=== PATIENT | female | born 1950 | race Caucasian/White ===

== ENCOUNTER 2016-08-19 16:35 | Observation (INO) | payer OTHER ==
[~2016-08-19] VITALS: Ht 160 cm; Wt 65.0 kg
[2016-08-19 16:56] LABS: HEMATOCRIT 36.4 % (36.0-46.0); MCH 31.9 PG (29.0-34.0); MCHC 33.5 G/DL (30.0-36.0); MEAN PLAT.VOLUME 9.8 uM^3 (9.5-12.4); PLATELET COUNT 310 K/uL (156-360); RBC DIS.WIDTH-CV 13.9 % (11.8-14.6); RBC DIS.WIDTH-SD 48.2 % (39-53); RED BLOOD COUNT 3.83 M/uL (3.80-5.20); WHITE BLOOD COUNT 8.9 K/uL (4.1-10.2)
[2016-08-19 17:04] LABS: CHLORIDE 107 mEq/L (99-109); POTASSIUM 3.6 mEq/L (3.7-5.4); SODIUM 140 mEq/L (136-147)
[2016-08-19 17:06] LABS: GLUCOSE 159 mg/dL (70-99)
[2016-08-19 17:07] LABS: ANION GAP 13 MEQ/L (2-14)
[2016-08-19 17:08] LABS: D-DIMER ELISA 0.33 mg/L FEU (< 0.57)
[2016-08-19 17:10] LABS: GFR ESTIMATE (CALCULATED) 40 mL/min/
[2016-08-19 17:11] LABS: UREA NITROGEN (BUN) 16 mg/dL (9-23)
[2016-08-19 17:18] LABS: TROP-I INTERPRETATION NEGATIVE; TROPONIN-I 0.03 ng/mL (0.0-0.30)
[2016-08-19] MEDS ORDERED: RANITIDINE HCL150 MG PO (18:17)
[2016-08-19] MEDS ORDERED: METHOTREXATE2.5 MG PO (18:17)
[2016-08-19] MEDS ORDERED: VITAMIN D31000 UNIT PO (18:18)
[2016-08-19] MEDS ORDERED: CALCIUM 500 +1 EAC2 PO (18:18)
[2016-08-19] MEDS ORDERED: FOLIC ACID1 MG PO (18:18)
[2016-08-19] MEDS ORDERED: SPIRIVA1 INHALATI IH (18:18)
[2016-08-19] MEDS ORDERED: PRAVASTATIN SOD10 MG PO (18:18)
[2016-08-19] MEDS ORDERED: PROAIR HFA8.5 GM IH (18:18)
[2016-08-19] MEDS ORDERED: LO-DOSE ASPIRIN81 M2 PO (18:19)
[2016-08-19] MEDS ORDERED: CLARITIN,ALAVAR10 MG PO (18:19)
[2016-08-19] MEDS ORDERED: ALEVE220 MG PO (18:19)
[2016-08-19] MEDS ORDERED: CEFTIN500 MG PO (18:19)
[2016-08-19 21:52] VITALS: BP 133/80
[2016-08-19 23:52] LABS: TROP-I INTERPRETATION NEGATIVE; TROPONIN-I 0.28 ng/mL (0.0-0.30)
[2016-08-20 00:02] VITALS: BP 120/69
[2016-08-20 04:31] VITALS: BP 109/65
[2016-08-20 06:27] LABS: ALKALINE PHOSPHATASE 35 IU/L (3-129); ANION GAP 5 MEQ/L (2-14); CHLORIDE 111 MEQ/L (99-109); GFR ESTIMATE (CALCULATED) > 59 mL/min/; POTASSIUM 4.2 MEQ/L (3.7-5.4); SAMPLE HEMOLYSIS CHECK 0; SAMPLE ICTERIC CHECK 0; SAMPLE LIPEMIA CHECK 0; SODIUM 142 MEQ/L (136-147); TOTAL BILIRUBIN 0.5 MG/DL (0.0-1.0); UREA NITROGEN (BUN) 13 mg/dL (9-23)
[2016-08-20 06:28] LABS: GLUCOSE 84 mg/dL (70-99)
[2016-08-20 06:30] LABS: HEMATOCRIT 32.2 % (36.0-46.0); MCHC 33.2 G/DL (30.0-36.0); MCV 96.4 FL (83-99); MEAN PLAT.VOLUME 10.2 uM^3 (9.5-12.4); PLATELET COUNT 261 K/uL (156-360); RBC DIS.WIDTH-CV 14.3 % (11.8-14.6); RED BLOOD COUNT 3.34 M/uL (3.80-5.20)
[2016-08-20 06:31] LABS: TROP-I INTERPRETATION NEGATIVE; TROPONIN-I 0.25 ng/mL (0.0-0.30); WHITE BLOOD COUNT 5.6 K/uL (4.1-10.2)
[2016-08-20 09:33] VITALS: BP 122/59
[2016-08-20] MEDS ORDERED: NITROSTAT0.4 MG SL (11:17)
[2016-08-20] MEDS ORDERED: NICOTINE PATCH1 EAC2 TD (11:17)
[2016-08-20 11:46] VITALS: BP 140/74
[2016-08-21 06:53] LABS: Estimated Average Glucose 117 mg/dL (70-123); HEMOGLOBIN A1c (GLYCOHEMOGLOB) 5.7 % HGB (Below 5.7)
== END 2016-08-20 12:43 | disposition home or self-care (01) ==
LOC: EME 16:35 → EDOF 19:28 → 5WEST 20:24
PROVIDERS: Emergency Medicine; Internal Medicine
DX: R07.89 Other chest pain (principal); R05 Cough; I47.1 Supraventricular tachycardia; J44.9 Chronic obstructive pulmonary disease, unspecified; E78.5 Hyperlipidemia, unspecified; M19.90 Unspecified osteoarthritis, unspecified site; M79.7 Fibromyalgia; I11.9 Hypertensive heart disease without heart failure; E87.6 Hypokalemia; R73.9 Hyperglycemia, unspecified
CPT/HCPCS: 71020; 80048; 80053; 83036; 83880; 84484; 85027; 85379; 93005; 94640; 99281; 99284; G0378; J0153; J1644; J7030